=== PATIENT | male | born 1960 | race Caucasian/White ===

== ENCOUNTER 2017-11-25 06:39 | Day surgery (SDC) | payer SELFPAY ==
[2017-11-25] VITALS (7 sets, daily range): BP systolic 74–120; BP diastolic 49–79; PULSE 69–82; RESP 14–16; TEMP 36.5–36.9; O2SAT 96–98; BMI 26.8
--- NOTE | 2017-11-25 | IMM_PTH ---
PATIENT: ABY LESTER LOC: EN U#:[id number] AGE/SX: 57/M ROOM: RE11/25/[address]: Dr. Alexi Park MD : 1960 BED: DIS: 11/25/2017 SPEC #: [id number] RECD: 11/26/17 10:51 STATUS: ADEOLA MILLIE #: [id number] REYMUNDO: 11/25/17 00:[address]: Alexi Park DEPT: IMMUNOHISTOCHEMISTRY RECD BY: Gayle Boyd ENTERED: 11/26/17 10:52 SP TYPE: IMMUNO OTHR DR: Dr. Jhon Park III, MD Tissues: A - Stomach, NOS Procedures: H Pylori (initial) PHYSICIAN & INSTITUTION [place] [id number] SPECIMEN INFORMATION: Tissue Source: A ? Proximal ascending polyp Clinical Info: Reflux, history of polyps Specimen Number: [id number] CPT code: 32975 METHODOLOGY: Deparaffinized sections of prefer/formalin-fixed tissue or PAP/DQ stained slides are incubated with monoclonal/polyclonal antibodies/oligonucleotide probes. Localization is made via biotin free immunoperoxidase method. Appropriate controls are performed and reacted as expected. Results on target cell population are indicated in the following table: RESULTS: ANTIBODY / CLONE RESULT Block A H Pylori (polyclonal) negative These tests were developed and their performance characteristics determined by [facility]. They may not have been cleared or approved by the U.S. Food and Drug Administration. The FDA has determined that such clearance or approval is not necessary. INTERPRETATION: A. Proximal ascending polyp, biopsy: Negative for Helicobacter pylori organisms. SJ:karla 11/27/17
--- NOTE | 2017-11-25 09:05 | EGD_PTH ---
PATIENT: ABY LESTER LOC: EN U#:[id number] AGE/SX: 57/M ROOM: RE11/25/[address]: Dr. Alexi Park MD : 1960 BED: DIS: 11/25/2017 SPEC #: [id number] RECD: 11/25/17 11:14 STATUS: ADEOLA MILLIE #: [id number] REYMUNDO: 11/25/17 09:[address]: Alexi Park DEPT: SURGICAL PATHOLOGY RECD BY: Deon Schroeder ENTERED: 11/25/17 13:23 SP TYPE: EGD BIOPSY OT DR: Dr. Jhon Park III, MD Tissues: A - Gastric mucous membrane B - Gastric mucous membrane C - Esophageal mucous membrane D - Ascending colon E - Ascending colon F - COLON BIOPSY Procedures: Special Stain Group II Surgery Specimen Level IV Alcian Blue/PAS (control) HEADER OPERATION: EGD, colonoscopy PRE-OP DIAGNOSIS: Reflux; history of polyps TISSUE SUBMITTED: A ? Antral biopsy for H. pylori and path, B ? Gastric polyp biopsy, C ? Distal esophageal biopsy, D ? Proximal ascending polyp, E ? Proximal ascending polyp biopsy, F ? Hepatic flexure polyp MICROSCOPIC DIAGNOSIS A. Antral biopsy: Mild gastritis. B. Gastric polyp, biopsy: Fundic gland polyp. C. 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 Focal mild chronic inflammation. Negative for dysplasia. See comment. D. Proximal ascending colon polyp, biopsy: Fragments of tubular adenoma. E. Proximal ascending colon polyp, biopsy: Tubular adenoma. F. Hepatic flexure polyp, biopsy: Fragments of tubular adenoma. Fragments of fecal material. SJ:karla 11/26/17 COMMENT A. The results of immunohistochemistry for Helicobacter pylori will be reported separately ([id number]). B. Alcian blue/PAS stain with matched control is used in the evaluation of the specimen. MICROSCOPIC DESCRIPTION Slides are reviewed. A. The specimen shows fragments of gastric mucosa with chronic inflammatory cell infiltrates in the lamina propria consisting of lymphocytes and plasma cells, consistent with mild chronic gastritis. GROSS DESCRIPTION A - Received in fixative is one container labeled with the patient's name and designated antral biopsy. The specimen consists of one elongated fragment of pink-marcial soft tissue that measures 0.7 x 0.3 x 0.2 cm. The specimen is totally submitted in one cassette. B - Received in fixative is one container labeled with the patient's name and designated gastric polyp biopsy. The specimen consists of one irregular fragment of pink-marcial soft tissue that measures 0.4 x 0.4 x 0.2 cm. The specimen is totally submitted in one cassette. C - Received in fixative is one container labeled with the patient's name and designated distal esophageal biopsy. The specimen consists of multiple irregular fragments of white-pink soft tissue that in aggregate measure 1.5 x 0.5 x 0.1 cm. The specimen is totally submitted in one cassette. D - Received in fixative is one container labeled with the patient's name and designated ascending colon biopsy. The specimen consists of multiple irregular fragments of light marcial soft tissue that in aggregate measure 0.7 x 0.5 x 0.2 cm. The specimen is totally submitted in one cassette. E - Received in fixative is one container labeled with the patient's name and designated proximal ascending colon polyp biopsy. The specimen consists of multiple irregular fragments of pink-marcial soft tissue that in aggregate measure 0.7 x 0.3 x 0.2 cm. The specimen is totally submitted in one cassette. F - Received in fixative is one container labeled with the patient's name and designated hepatic flexure polyp. The specimen consists of multiple irregular fragments of light marcial soft tissue mixed with fecal material that in aggregate measure 1.2 x 0.7 x 0.2 cm. The specimen is totally submitted in one cassette. / RY:rg 11/25/17 TC:1 CPT: 50698 x6, 00067
--- NOTE | 2017-11-25 09:44 | OP.PCM_ITS ---
Problem List (1) Cough Status: Acute (2) Personal history of colonic polyps Status: Acute Report of Operation Date of Procedure: 11/25/17 Pre-Operative Diagnosis: Cough. Personal history of colon polyps Post-Operative Diagnosis: Cough, moderate hiatal hernia, reflux esophagitis and findings suspicious for Peña's esophagus gastric fundic polyps,. Sessile polyps of the proximal ascending colon ?2. Sessile polyp C hepatic flexure ?2 Surgery/Procedure Performed:: Esophagogastroduodenoscopy with antral and distal esophageal fold forcep biopsies and gastric polypectomy cold forcep biopsy. Colonoscopy with cold forcep polypectomy and hot snare polypectomy Description of Surgical Findings:: Amount and informed consent was obtained. 57-year-old gentleman was taken to the endoscopy room. His oropharynx anesthetized with Cetacaine. He was placed in a left lateral decubitus position. Throughout both the upper and lower endoscopy he received a total of 150 mg of Demerol and 5 mg of Versed is intravenous sedation. Videogastroscope was inserted into the esophageal inlet advanced without difficulty. The proximal mid esophagus was not remarkable. The EG junction was approximately 37 cm. Moderate sized hiatal hernia noted. Findings consistent with reflux esophagitis and irritation erosion of the esophagus noted with additional findings suspicious for Peña's esophagus over a length of approximately 1-1/2 cm. Widely patent EG junction. The scope was advanced into the stomach minimal air antral erythema noted. The scope was advanced through the pylorus and the first and second portion of the duodenum were inspected this was not remarkable. The scope was withdrawn back into the stomach antrum was biopsied. Performed with cold forceps. The scope was retroflexed. A hiatal hernia noted. Scattered gastric fundic polyps noted. Cold forceps used to biopsy 1 of those. Excess fluid and air was aspirated free after the greater and lesser curvatures were inspected. The distal esophagus was noted to have findings consistent with esophagitis and possibly Peña's. Cold forceps biopsies were performed. Hemostasis was intact. Excess fluid and air was aspirated free. The scope was withdrawn without additional abnormality. The patient was kept in left loud skin position. Digital rectal exam performed. Grade 2-3 hemorrhoids noted with 3+ enlarged prostate. The scope was advanced through the left colon transverse colon with some transabdominal pressure to the cecum. The cecum ileocecal valve area was nicely achieved. Bowel prep was adequate. 2 sessile polyps of the proximal ascending colon were identified. One was removed with a hot snare. The second was removed with cold forceps. The scope was withdrawn and 2 additional polyps were identified at the hepatic flexure. One was removed with a hot snare. That area was then treated with a hemostatic clip. The other one was more diminutive and treated with a cold biopsy. Hemostasis intact. The scope was withdrawn from the transverse colon descending colon sigmoid colon. Scattered sigmoid diverticulosis identified. No evidence of acute inflammation. Excess fluid nurse aspirated free after the scope was retroflexed within the rectum and the hemorrhoidal changes noted. The procedure was completed he tolerated it well. Impression Moderate sized hiatal hernia with findings consistent with gastroesophageal reflux disease and possibly Peña's. Minimal antral gastritis. Scattered benign-appearing gastric fundic polyps. 2 sessile polyps of the proximal ascending colon into sessile polyps of these hepatic flexure. Pathology pending. This colonoscopy was November 09, 2012. Consideration for follow-up colonoscopy at no greater than 3 years. This will be pending pathology. The patient is scheduled to have a return office visit with me in 1 week's time to discuss his colonic polyps as well as hiatal hernia GERD and possible Peña 's. Possible consideration for surgical reflux procedure. Cc: Dr. Jhon Park, III The upper endoscopy was Meds given were 0900. The scope was inserted 0903. Procedure was completed at 0910. The colonoscopy was started 0913. The cecum was reached at 0915. And the procedure was completed at 0932. Alexi Park M.D., F.A.C.S. Type of Anesthesia:: IV Sedation
--- NOTE | 2017-11-25 10:05 | SUR.PHASEI ---
Per Dr Shultz's orders: Prescription for Omeprazole 40mg daily x30tab phoned to [facility] to [facility] Pharmacist. pt aware.
== END 2017-11-25 10:40 | disposition home or self-care (01) ==
LOC: EN 06:41 → AC 06:42
PROVIDERS: Family Provider Family Medicine; PCP Family Medicine; Visit Provider Surgery
PROC: 0DJD8ZZ Inspection of Lower Intestinal Tract, Via Natural or Artificial Opening Endoscopic (ICD-10-PCS; CPT 45378; principal; 2017-11-25 08:25)
DX: K29.50 Unspecified chronic gastritis without bleeding (principal); K44.9 Diaphragmatic hernia without obstruction or gangrene; K21.0 Gastro-esophageal reflux disease with esophagitis; K22.70 Barrett's esophagus without dysplasia; D12.2 Benign neoplasm of ascending colon; D12.3 Benign neoplasm of transverse colon; K64.1 Second degree hemorrhoids; K64.2 Third degree hemorrhoids; K31.7 Polyp of stomach and duodenum; D12.4 Benign neoplasm of descending colon; Z12.10 Encounter for screening for malignant neoplasm of intestinal tract, unspecified; N40.0 Benign prostatic hyperplasia without lower urinary tract symptoms; R05 Cough; Z87.891 Personal history of nicotine dependence; E78.00 Pure hypercholesterolemia, unspecified; Z80.0 Family history of malignant neoplasm of digestive organs
CPT/HCPCS: 43239; 45380; 45385; 88305; 88313; 88342; 99152; 99153; J7120

== ENCOUNTER 2017-12-11 07:33 | Day surgery (SDC) | payer OTHER, SELFPAY ==
[2017-12-11 07:52] VITALS: BP 134/86; PULSE 69; RESP 18; TEMP 36.2; O2SAT 99; BMI 26.4
== END 2017-12-11 08:52 | disposition home or self-care (01) ==
LOC: EN 07:34 → AC 07:35
PROVIDERS: Family Provider Family Medicine; PCP Family Medicine; Visit Provider Surgery
PROC: F00ZJWZ Instrumental Swallowing and Oral Function Assessment using Swallowing Equipment (ICD-10-PCS; CPT 43235; principal; 2017-12-11 07:55)
DX: Z13.810 Encounter for screening for upper gastrointestinal disorder (principal)
CPT/HCPCS: 91010

== ENCOUNTER 2017-12-29 11:27 | Observation (INO) | payer SELFPAY ==
--- NOTE | 2017-12-17 14:07 | EKG12_ITS ---
Test Reason : PRE OP Blood Pressure : / mmHG Vent. Rate : 072 BPM Atrial Rate : 072 BPM P-R Int : 156 ms QRS Dur : 112 ms QT Int : 368 ms P-R-T Axes : 032 -10 044 degrees QTc Int : 402 ms Sinus rhythm with Premature atrial complexes Otherwise normal ECG Confirmed by SARAHI BAILEY, YURY ([id number]), copy editor SERENA LESTER ([id number]) on 12/19/2017 1:00:34 PM Referred By: Alexi Park Confirmed By:YURY MCCLAIN MD
[2017-12-17 14:10] LABS: Absolute Lymphocyte Count 1.43 X10^3/ul (0.83-4.51); Absolute Neutrophil Count 4.5 X10^3/uL (2.0-7.7); Basophil# 0.07 X10^3/uL; Eosinophil# 0.13 X10^3/uL; Eosinophils% 1.9 % (0-5); Hematocrit 44.5 % (40-54); Hemoglobin 14.3 g/dl (13.0-16.5); Lymphocyte # 1.43 X10^3/ul (4.0); Lymphocyte % 21.1 % (19-41); Mean Corp Hgb Conc 32.1 g/gl (32-36); Mean Corpuscular Hgb 27.3 pg (27.0-32.0); Mean Corpuscular Volume 84.9 fL (80-94); Mean Platelet Vol. 8.8 fl (6.2-12.0); Monocyte# 0.67 X10^3/uL; Monocyte% 9.9 % (0-10); Neutrophil # 4.45 X10^3/uL (2.7-7.7); Neutrophil % 65.8 % (47-70); Platelet Count 223 K/mm3 (150-450); RBC Distribution Width CV 13.4 % (11.6-14.6); RBC Distribution Width SD 41.4 fl (35.1-43.9); Red Blood Count 5.24 M/mm3 (4.6-6.2); White Blood Count 6.8 K/mm3 (4.4-11.0)
[2017-12-17 14:11] LABS: POSITIVE COUNT NO; POSITIVE DIFFERENTIAL NO; POSITIVE MORPHOLOGY NO
--- NOTE | 2017-12-17 14:15 | RAD_ITS ---
STUDY: X-RAY CHEST REASON FOR EXAM: Male, 57 years old. cough x2 months pt scheduled for hiatal hernia surgery December 29 TECHNIQUE: Frontal and lateral view of the chest. COMPARISON: None. FINDINGS: The lungs are clear and expanded. There is no demonstrated pleural abnormality. Normal size heart. Calcified hilar lymph nodes. Normal visualized pulmonary arteries. Normal visualized aortic arch and descending thoracic aorta. There are diffuse degenerative changes of the visualized thoracic spine. Normal visualized ribs, clavicles, and shoulders. There is no demonstrated abnormality of the visualized soft tissue structures of the upper abdomen. RAD/Chest PA and Lateral IMPRESSION: There are no acute findings in the chest. Electronically Signed: Dwight Peace MD at 17:08 EDT , Service support ,
[2017-12-17 14:39] LABS: Anion Gap 4 (5-15); BUN 24 mg/dL (7-18); BUN/Creat Ratio 25.5 RATIO (10-20); Chloride 106 mmol/L (98-107); Creatinine, Serum 0.94 mg/dL (0.70-1.30); EST Glomerular Filtration Rate 88 mL/min (>60); Est Glom Filt Rate - Afr Amer 107 mL/min (>60); Glucose 82 mg/dL (74-106); Potassium 4.1 mmol/L (3.5-5.1); Sodium Level 139 mmol/L (136-145)
[2017-12-29] VITALS (14 sets, daily range): BP systolic 119–141; BP diastolic 52–97; PULSE 65–91; RESP 14–18; TEMP 36.3–37.1; O2SAT 93–99; BMI 27.7
--- NOTE | 2017-12-29 06:14 | DCINST_ITS ---
Discharge Diet: Light diet - advance as tolerated - if you have questions about your diet instructions, please talk to you doctor., - - Dissolvable liquids/ soups for 1-2 days then may advance to pasta and rice and then to flaky fish or well cut up chicken Discharge Activity: May Not Drive - for 1 week or while taking narcotic pain medicine., - - May perform light tasks--pencil pushing No bike riding yet please May shower in (days): 1 Lifting Restrictions: 10 pounds Call your doctor if your incision/area has: Continuous Slow Oozing, Sudden Increased Bleeding, Increased Pain/ Swelling, Increased Redness, Foul Smelling Discharge Call your doctor if you observe: Fever of 101 or Higher Suture Line Care: Avoid Pulling/Pushing, Avoid Pinching/Bending Additional Dressing/Incision Instructions:: Change or remove dressing in 4 days. Leave steri-strips in place for 1 week. Allergies/Adverse Reactions: Allergies No Known Allergies Allergy (Verified 12/11/17 07:57) Medications to take at Discharge simvastatin 20 mg tablet 20 mg PO QAM 11/17/17 [place]-3 Fatty Acids/Fish Oil [Fish Oil 1,000 mg Capsule] 1 ea PO DAILY 11/19/17 Prosta [place] 9 mg PO DAILY 12/23/17 Hydrocodone Bitart/Apap 5-325 [[place] 5MG-325MG] 1 tablet PO Q4H PRN PRN 3 Days # 10 tablet 12/29/17 The following prescriptions were given: Hydrocodone Bitart/Apap 5-325 [[place] 5MG-325MG] 1 tablet PO Q4H PRN PRN 3 Days # 10 tablet PRN Reason: Pain Primary Care Physician: Jhon Park III, MD [Primary Care Provider] - Please Follow Up With: Alexi Park MD - [phone] When: Call to make an appointment to be seen in about 10 days.
[2017-12-29] MEDS: Cefazolin 2 GM in 0.9% Normal Saline 100 ML IV (07:34)
[2017-12-29] MEDS: Bupivacaine Mpf 0.5% 30 ML VIAL (11:02)
--- NOTE | 2017-12-29 11:13 | PCM.OPRPT ---
Problem List (1) Peña esophagus Status: Acute Qualifiers: Peña's esophagus type: without dysplasia Report of Operation Date of Procedure: 12/29/17 Pre-Operative Diagnosis: Gastroesophageal reflux disease with Peña's esophagus and chronic cough. Diminished esophageal motility Post-Operative Diagnosis: Same Surgery/Procedure Performed:: Laparoscopic toupet procedure with repair of hiatal hernia. Confirmatory topical gastroduodenoscopy Description of Surgical Findings:: Timeout and informed consent was obtained. 57-year-old gentleman was taken the operating room. He was placed prone on the table. He underwent general ventricular-based anesthesia. Ancef 2 g given intravenous preoperatively. He was placed in a low lithotomy position. Careful positioning of a footboard with rolled blankets was used to support the buttock area. The abdomen was then sterilely prepped and draped. Drape holding. Using a 500 Visiport technology superior and right upper abdomen [place] was gained. The abdomen was insufflated with CO2 to pressure of tenderness or pressure. The abdomen is inspected. A significant amount of fatty omentum. Then in the left epigastrium I placed a 10 point report. 2 additional 500 ports in the left upper quadrant and a additional family report laterally on the right. Through the lateral right port liver retractor was placed. The patient was placed in reverse Trendelenburg position. There appeared to be a replaced right hepatic artery. I incised the epiphrenic ligament gain access identify the right arya then dissected over the apical surface of the esophagus identified the left arya. Unfortunately the stomach was really densely adherent particularly on the left with a very very short short gastrics. I used harmonic scalpel to incise the greater curvature the stomach dissected up to the hilum of the spleen the short gastrics were extraordinarily tight and very careful and tedious dissection was required to free the short gastrics were needed I did do several Hem-o-stefano clips. Gradually with repositioning the patient was able to gradually gain more complete review on access. Now having completely freed the fundus of the stomach is now better address the left arya and I dissected that free did some blunt retroesophageal dissection and then tediously looking at both sides was able to circumferentially dissect around the esophagus. Having been achieved that I now had still be intact hepatic. I repaired the arya with a pledgeted suture of interrupted 0 Ethibond. 2 separate sutures were placed. I felt that I had good closure. Then I took the fundus of the stomach and wrapped around the back. I secured the posterior aspect of the wrap to the diaphragmatic repair again with serial Ethibond. Now I performed the anterior portion of the wrap the apical sutures I interrupted and performed by addressing the fundus of the stomach epiphrenic ligament in the anterior wall of the esophagus and what ended up being approximately 240? posterior wrap. Apical suture was interrupted then I used a running line of 0 Ethibond to complete that to pay procedure. I performed a similar technique on each side with an interrupted suture apically including the epiphrenic ligament the anterior surface of the vagus and then a running suture to complete that approximation of the fundic wrap to the anterior wall of the esophagus. Vagus nerves appear to be intact. I felt that he had good posterior placement good securement of this wrap. A piece of fibular and been placed in the bed of the spleen to further assist with hemostasis this area was reinspected I felt that it was nicely intact. Now I am introduced a flexible gastroscope after instilling fluid in the upper abdomen there was no evidence of any air leak whatsoever I inspected the esophagus it appeared to be nicely intact appearance again identified the scope was introduced in the stomach retroflexed and I felt that there was a nice posterior graft in place. I then placed at the antegrade viewing aspirated out fluid and air withdrew the scope. The abdomen was closed with a 10 minute trocar site with 0 Vicryl utilizing a grainy needle technique. Wounds were closed with interrupted 4 Monocryl subdermal stitches. Steri-Strips Telfa and OpSite dressings applied. Sponge instrument and needle counts were reported to the surgeon be correct. Blood loss was approximately 20 cc. He tolerated procedure was taken to recovery or insect condition is no apparent complication. Specimens none. Drains none. Blood loss 20 cc. Alexi Park M.D., F.A.C.S. Type of Anesthesia:: General Anesthesiologist: Alli Jose
[2017-12-29] MEDS: Ondansetron 4 MG/2 ML Vial IV (15:22)
--- NOTE | 2017-12-29 18:01 | PCM.PN.BLA ---
Progress Note Pt with some nausea, no vomiting, no flatus Some pain, not severe Difficulties with voiding, may need st. cath Will initiate flomax and hold IVF Good progress
[2017-12-29] MEDS: Tamsulosin HCl 0.4 MG Capsule PO (18:27)
[2017-12-29] MEDS: Acetaminophen 325 MG Tablet 650 MG PO (19:00)
[2017-12-29] MEDS: Atorvastatin Calcium 10 MG Tablet PO (21:55)
[2017-12-30] MEDS: Acetaminophen 325 MG Tablet 650 MG PO ×2 (01:42→07:41)
[2017-12-30 04:26] VITALS: BP 131/77; PULSE 78; RESP 16; TEMP 36.8; O2SAT 94
--- NOTE | 2017-12-30 05:53 | PCM.PN.BLA ---
Progress Note Good progress Advance diet dissolvable liquids and discharge
[2017-12-30 06:11] LABS: Absolute Lymphocyte Count 1.04 X10^3/ul (0.83-4.51); Absolute Neutrophil Count 6.1 X10^3/uL (2.0-7.7); Basophil# 0.02 X10^3/uL; Basophil% 0.2 % (0-1); Eosinophil# 0.03 X10^3/uL; Eosinophils% 0.4 % (0-5); Hematocrit 39.1 % (40-54); Hemoglobin 12.8 g/dl (13.0-16.5); Lymphocyte # 1.04 X10^3/ul (4.0); Mean Corp Hgb Conc 32.7 g/gl (32-36); Mean Corpuscular Hgb 27.6 pg (27.0-32.0); Mean Corpuscular Volume 84.4 fL (80-94); Mean Platelet Vol. 9.4 fl (6.2-12.0); Monocyte# 0.81 X10^3/uL; Monocyte% 10.1 % (0-10); Neutrophil # 6.12 X10^3/uL (2.7-7.7); Neutrophil % 76.2 % (47-70); Platelet Count 206 K/mm3 (150-450); RBC Distribution Width CV 13.5 % (11.6-14.6); RBC Distribution Width SD 40.7 fl (35.1-43.9); Red Blood Count 4.63 M/mm3 (4.6-6.2)
[2017-12-30 06:14] LABS: POSITIVE COUNT NO; POSITIVE DIFFERENTIAL NO; POSITIVE MORPHOLOGY NO
[2017-12-30 07:42] VITALS: BP 126/86; PULSE 73; RESP 18; TEMP 36.7; O2SAT 97
[2017-12-30] MEDS: Omega-3 Acid Ethyl Esters 1 GM Capsule PO (09:47)
[2017-12-30 10:56] VITALS: BP 124/90; PULSE 76; RESP 18; TEMP 36.8; O2SAT 96
[2017-12-30 13:05] VITALS: BP 124/90; PULSE 76; RESP 18; TEMP 36.8; O2SAT 96
== END 2017-12-30 13:05 | disposition home or self-care (01) ==
LOC: SDC 11:35 → MS3 12-30 13:21
PROVIDERS: Admitting Provider Surgery; Family Provider Family Medicine; PCP Family Medicine; Visit Provider Surgery
PROC: (CPT 43325; principal; 2017-12-29 07:25)
DX: K22.70 Barrett's esophagus without dysplasia (principal); K44.9 Diaphragmatic hernia without obstruction or gangrene; K21.9 Gastro-esophageal reflux disease without esophagitis; R05 Cough; E78.00 Pure hypercholesterolemia, unspecified; Z79.899 Other long term (current) drug therapy
CPT/HCPCS: 43280; 36415; 80048; 85025; 96374; 99218; J7120; C1768; G0378; G0379; J2405

== ENCOUNTER → 2018-11-19 16:31 | Outpatient (CLI) | payer OTHER, SELFPAY ==
[2017-12-29 13:51] VITALS: BMI 27.7
--- NOTE | 2018-11-19 16:35 | EKG12_ITS ---
Test Reason : PRE-OP Blood Pressure : / mmHG Vent. Rate : 083 BPM Atrial Rate : 083 BPM P-R Int : 154 ms QRS Dur : 112 ms QT Int : 356 ms P-R-T Axes : 033 002 053 degrees QTc Int : 418 ms Normal sinus rhythm with sinus arrhythmia Inferior infarct , age undetermined Abnormal ECG Confirmed by CARLOTA BAILEY, TERRENCE ([id number]), production editor LAUREN THOMPSON ([id number]) on 11/20/2018 1:46:03 PM Referred By: Eliel Lyles Confirmed By:TERRENCE VAN MD
--- NOTE | 2018-11-19 16:35 | RAD_ITS ---
STUDY: X-RAY CHEST REASON FOR EXAM: Male, 58 years old. Preoperative testing TECHNIQUE: PA and lateral views of the chest. COMPARISON: None. FINDINGS: The lungs are clear and expanded. There is no demonstrated pleural abnormality. Normal size heart. Normal mediastinum and elyse. Normal visualized pulmonary arteries. Normal visualized aortic arch and descending thoracic aorta. There are diffuse degenerative changes of the visualized thoracic spine. Normal visualized ribs, clavicles, and shoulders. There is no demonstrated abnormality of the visualized soft tissue structures of the upper abdomen. RAD/Chest PA and Lateral IMPRESSION: 1. No acute cardiopulmonary process. Electronically Signed: Arturo Triana MD at 12:11 EDT , Service support ,
== END ==
PROVIDERS: Family Provider Family Medicine; PCP Family Medicine; Referring Provider Orthopaedic Surgery; Visit Provider Orthopaedic Surgery
DX: Z01.810 Encounter for preprocedural cardiovascular examination (principal); Z01.811 Encounter for preprocedural respiratory examination
CPT/HCPCS: 71046; 93005

== ENCOUNTER → 2018-12-08 15:27 | Outpatient (CLI) | payer OTHER, SELFPAY ==
[2018-12-08 14:47] VITALS: BMI 28.8
[2018-12-08 18:19] LABS: AST(SGOT) 21 U/L (15-37); Alanine Aminotransfer ALT/SGPT 29 U/L (16-61); Albumin, Serum 3.9 g/dL (3.2-5.0); Alkaline Phosphatase 89 U/L (45-117); Bilirubin, Direct 0.08 mg/dL (0.00-0.30); Globulin 3.6 g/dL (2.2-4.2); Protein, Total 7.5 g/dL (6.4-8.2)
== END ==
PROVIDERS: Family Provider Family Medicine; PCP Family Medicine; Referring Provider Internal Medicine Cardiovascular Disease; Visit Provider Internal Medicine Cardiovascular Disease
DX: E78.00 Pure hypercholesterolemia, unspecified (principal)
CPT/HCPCS: 36415; 80076

== ENCOUNTER → 2018-12-18 13:37 | Outpatient (CLI) | payer SELFPAY ==
[2018-12-08 14:47] VITALS: BMI 28.8
--- NOTE | 2018-12-18 13:39 | ECHOD_ITS ---
Reason For Study: PRE-OPERATIVE Procedure This was a 2D Doppler, Color Flow transthoracic echocardiogram. Exam performed in department. Left Ventricle Normal size and thickness. The estimated ejection fraction is 75 %. Stage 1 diastolic dysfunction. No regional wall motion abnormalities noted. Right Ventricle Normal size and thickness. Normal systolic function. Atria Normal left atrium. Normal right atrium. Normal atrial septum. Mitral Valve The mitral valve is structurally normal. No prolapse or stenosis seen. Tricuspid Valve Normal tricuspid valve. Trivial tricuspid valve insufficiency. Right ventricular systolic pressure estimated to be 30 mmHg. Aortic Valve Normal aortic valve. Trisinus/trileaflet aortic valve. Pulmonic Valve Normal pulmonic valve. Great Vessels Normal aortic root. Normal arch. Normal inferior vena cava. Inferior vena cava collapse with sniff. Pericardium/Pleural No pericardial effusion. MMode/2D Measurements & Calculations LVIDd: 4.8 cm IVSd: 0.96 cm Ao root diam: 3.4 cm LVIDs: 2.7 cm LVPWd: 1.0 cm RVDd: 3.7 cm FS: 43.1 % LAV(MOD-bp): 54.8 ml LVAd ap4: 38.9 cm2 SV(MOD-sp4): 91.6 ml LAV(MOD-bp) Indexed: 26.5 ml/m2 EDV(MOD-sp4): 133.5 ml LAV(MOD-sp2): 61.1 ml EDV(sp4-el): 140.5 ml LAV(MOD-sp4): 45.5 ml LVAs ap4: 18.8 cm2 ESV(MOD-sp4): 41.9 ml ESV(sp4-el): 41.8 ml EF(MOD-sp4): 68.6 % EF(sp4-el): 70.2 % SV(sp4-el): 98.7 ml LA A4 area: 18.0 cm2 LA dimension(2D): 3.6 cm RA A4 area: 14.8 cm2 Time Measurements MV dec time: 0.21 sec Doppler Measurements & Calculations MV E max levar: 106.6 cm/sec Lat Peak E' Levar: 11.3 cm/sec Med Peak E' Levar: 8.5 cm/sec MV A max levar: 117.9 cm/sec E/E' lat: 9.4 E/E' med: 12.5 MV E/A: 0.90 Ao V2 max: 195.7 cm/sec LV V1 max: 148.3 cm/sec PA V2 max: 169.9 cm/sec Ao max P.3 mmHg LV V1 max P.8 mmHg TR max levar: 249.6 cm/sec TR max P.9 mmHg Interpretation Summary Stage 1 diastolic dysfunction. The estimated ejection fraction is 75 %. Trivial tricuspid valve insufficiency. Right ventricular systolic pressure estimated to be 30 mmHg. There is no comparison study available. Ordering Physician: Ancelmo Dyson Referring Physician: BEATRIS WAGNER Performed By: Marisol Bowman RDCS
== END ==
PROVIDERS: Family Provider Family Medicine; PCP Family Medicine; Referring Provider Internal Medicine Cardiovascular Disease; Visit Provider Internal Medicine Cardiovascular Disease
DX: Z01.810 Encounter for preprocedural cardiovascular examination (principal); E78.00 Pure hypercholesterolemia, unspecified; R94.31 Abnormal electrocardiogram [ECG] [EKG]
CPT/HCPCS: 93306

== ENCOUNTER → 2018-12-22 09:54 | Outpatient (CLI) | payer OTHER, SELFPAY ==
[2018-12-08 14:47] VITALS: BMI 28.8
--- NOTE | 2018-12-22 09:56 | STEWCON_ITS ---
Reason For Study: PRE-OP Stress Results Protocol: Michael Protocol WITH DEFINITY Maximum Predicted HR: 164 bpm Target HR: 139 bpm % Maximum Predicted HR: 93 % DurationHeart Rate Stage (mm:ss) (bpm) BP Comment BASELINE 68 132/801CC DEFINITY STAGE 1 3:00 110 152/72 STAGE 2 3:00 122 140/76 STAGE 3 3:00 153 164/601CC DEFINITY RECOVERY 90 130/70 Stress Duration: 9:00 mm:ss Maximum Stress HR: 153 bpm Baseline Echocardiogram Findings The estimated ejection fraction is 60 %. Stress Echo Wall motion Data Resting WM Intermediate WM Stress WM Resting Wall Motion Wall Motion Stress No regional wall motion No regional wall motion abnormalities noted. abnormalities noted. EKG Data The baseline ECG displays normal sinus rhythm. The patient exercised according to the regular Michael protocol for a total duration of 9:00. The maximum heart rate attained was 155 beats per minute. This was 94% of maximum predicted heart rate. The patient exercised into stage 4 of the Michael protocol. During stress, there were no ST or T wave changes noted to suggest ischemia. No clinical angina was noted. Interpretation Summary The estimated ejection fraction is 60 %. Normal, adequate, treadmill echocardiogram. Negative for ischemia by EKG and echocardiographic criteria. No anginal symptoms noted. Rare PVC noted. Appropriate blood pressure response to exercise. Average exercise capacity for age. Rare PVCs noted. Test terminated due to target heart rate achieved. Decreased sensitivity due to poor echo windows requiring Definity agent. No complication. The study was technically difficult. Contrast injection was performed. Ordering Physician: Ancelmo Dyson MD Referring Physician: Ancelmo Dyson Performed By: Odalys Guerra, FAYE, RVT
[2018-12-22 11:49] LABS: Cholesterol 189 mg/dL (200); High Density Lipoprotein 61 mg/dL; Triglycerides 108 mg/dL; Very Low Density Lipoprotein 22 mg/dL (5-40)
== END ==
PROVIDERS: Family Provider Family Medicine; PCP Family Medicine; Referring Provider Internal Medicine Cardiovascular Disease; Visit Provider Internal Medicine Cardiovascular Disease
DX: Z01.810 Encounter for preprocedural cardiovascular examination (principal); E78.00 Pure hypercholesterolemia, unspecified; R94.31 Abnormal electrocardiogram [ECG] [EKG]
CPT/HCPCS: 36415; 80061; 93017; 93350; Q9957; A4216; C8928

== ENCOUNTER → 2020-01-27 13:58 | Outpatient (CLI) | payer OTHER, SELFPAY ==
[2019-11-16 14:28] VITALS: BMI 29.2
[2020-01-27 15:04] LABS: AST(SGOT) 18 U/L (15-37); Alanine Aminotransfer ALT/SGPT 25 U/L (16-61); Albumin, Serum 3.6 g/dL (3.2-5.0); Alkaline Phosphatase 79 U/L (45-117); Bilirubin, Direct 0.22 mg/dL (0.00-0.30); Cholesterol 172 mg/dL (200); Globulin 3.6 g/dL (2.2-4.2); High Density Lipoprotein 54 mg/dL; Protein, Total 7.2 g/dL (6.4-8.2); Triglycerides 92 mg/dL; Very Low Density Lipoprotein 18 mg/dL (5-40)
== END ==
PROVIDERS: PCP Family Medicine; Visit Provider Internal Medicine Cardiovascular Disease
DX: E78.00 Pure hypercholesterolemia, unspecified (principal)
CPT/HCPCS: 36415; 80061; 80076

== ENCOUNTER 2020-04-07 05:12 | Day surgery (SDC) | payer SELFPAY ==
[2019-11-16 14:28] VITALS: BMI 29.2
[2020-04-07] VITALS (8 sets, daily range): BP systolic 108–129; BP diastolic 67–94; PULSE 56–69; RESP 16; TEMP 36–36.6; O2SAT 94–100; BMI 26.3
--- NOTE | 2020-04-07 05:50 | PCM.HP.BLA ---
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 Head Required: No Is patient in pain?: No Allergies No Known Allergies Allergy (Verified 10/11/19 13:04) Medications simvastatin 20 mg tablet 20 mg PO QAM 11/17/17 [History Confirmed 10/11/19] [place]-3 Fatty Acids/Fish Oil [Fish Oil 1,000 mg Capsule] 1 ea PO DAILY 11/19/17 [History Confirmed 10/11/19] Pro[place] 9 mg PO DAILY 12/23/17 [History Confirmed 10/11/19] aspirin 81 mg tablet,delayed release 81 mg PO DAILY 12/08/18 [History Confirmed 10/11/19] FOR[facility]LY [facility] Medical History Pre-operative cardiovascular exam, new EKG abnormalities c/w ischemia (Acute) Abnormal EKG (Acute) Peña esophagus (Acute) Heartburn (Acute) Hypercholesteremia (Acute) Surgical History History of esophagogastroduodenoscopy (EGD) (Acute) H/O colonoscopy (Acute) H/O umbilical hernia repair (Acute) S/P right rotator cuff repair (Acute) S/P right knee arthroscopy (Acute) History of repair of hiatal hernia (Acute) Family History Father Colon cancer Mother CAD (coronary artery disease) Social History (Updated 10/11/19 @ 13:18 by Alexi Park MD) Smoking Status: Never smoker alcohol intake: never HPI HPI HPI: ABY LESTER, is a 59 M who presents to the office today for surgical follow-up regarding 2 separate issues. 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 His most recent upper and lower endoscopy was December 2017. Subsequent to that he had a laparoscopic toupet procedure.. At that time of his lower scope he had tubular adenoma removed from the proximal ascending colon x2 and from the hepatic flexure x1. His preoperative study showed some esophageal motility issues which was the reason for the partial wrap. He states that ever since the procedure occasionally he will have food that does not quite 1 to go down and all he has to do is take a sip of water to move it along. He has not had a distinguished esophageal obstruction. It does not bother him. He does not correlate it with any particular type of foods. He does not think it is an issue but his asked him to look into it. He otherwise states that the procedure is successful regarding reflux symptoms. He has not noticed any bright red blood per rectum or melena. HPI HPI HPI: ABY LESTER, is a 59 M who presents to the office today for ROS General General: No weight change, appetite, fatigue, colon cancer, breast cancer or weakness HEENT HEENT: No difficulty swallowing, eye injury, eye surgery, swollen glands or hoarseness Endo Endocrine: No thyroid disease, diabetes mellitus, thyroid cancer, Hair loss, heat intolerance or cold intolerance Musc Musculoskeletal: No back problems, arthritis, rheumatoid arthritis, gout or joint pain Cardio Cardiovascular: No murmur, pacemaker, heart disease, atrial fibrillation, high blood pressure, heart attack, heart stent, palpitations, shortness of breat with exertion or chest pain Psych Psychiatric: No depression, anxiety or hearing voices Resp Respiratory: Yes shortness of breath, No sleep apnea, No cough, No COPD, No asthma, No emphysema, No wheezing Gastro Gastrointestinal: No abdominal pain, No nausea or vomiting, No diarrhea, No constipation, No blood in stool, No acid reflux, No hemorrhoids, No ulcers, No gallbladder problem, No black,tarry stools Donaldo Hematologic: Yes blood thinners, No blood disorders, No bleeding, No anemia, No blood clots Neuro Neurologic: No weakness Exam Cardio Heart Sounds: no murmurs Assessment & Plan Problems 1. 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 Multiple polyps of sigmoid colon K63.5 Plan After discussion with the patient it appears that his symptoms have been ongoing since his surgery. They do not cause him any type of ill effect. I suspected secondary to his diminished esophageal motility since he is able to clear it so easily with water. With all of that in mind he and I agreed that we would to do a repeat upper endoscopy looking at his Peña's and repeat colonoscopy because of his history of multiple colon polyps. In the meantime he is also scheduled to see cardiology regarding potential issue that came up during an orthopedic procedure. Again the patient is not stating that he is symptomatic currently. He will be seeing Dr. Ancelmo Dyson. Barring any problems he can present open access for a combined upper endoscopy for Peña's with the successful posterior wrap and colonoscopy because of history of colon polyps. Alexi Park M.D., F.A.C.S. Coding Level of Care Code Off vis,est,level 2 Diagnoses Peña's esophagus without dysplasia K22.70 ??Peña's esophagus type: without dysplasia Multiple polyps of sigmoid colon K63.5 The patient has been seen by Dr. Ancelmo Dyson in cardiac work-up 1. Abnormal EKG: Patient had an abnormal EKG which triggered a cardiac work-up less than 1 year ago, the results of which were essentially negative. He is asymptomatic from a cardiac standpoint. He does have some mild dyspnea on exertion walking up stairs, but this appears to be well tolerated and is not accelerating. No additional treatment was felt to be indicated. The patient was maintained on low-dose aspirin therapy. I have re-examined the patient. There are no clinical changes since date of exam. Procedure Criteria Procedure Type: Elective COVID Risk Discussion: The surgeon/proceduralist and patient have discussed in detail the risk of exposure to and/or potential harm posed by the COVID-19 virus with having a surgery/procedure at this time versus the risk of delaying the surgery/procedure. It is not possible to know either the risk of delaying the surgery or procedure or chance of getting an infection with perfect accuracy, but a joint decision was made between the patient and the surgeon/proceduralist to proceed at this time with the scheduled surgery/procedure as indicated on the consent form.
[2020-04-07] MEDS: Lactated Ringers 1,000 ML 100 ML IV (06:06)
--- NOTE | 2020-04-07 06:30 | IMM_PTH ---
PATIENT: ABY LESTER LOC: EN U#:[id number] AGE/SX: 60/M ROOM: RE04/07/[address]: Dr. Alexi Park MD : 1960 BED: DIS: 04/07/2020 SPEC #: [id number] RECD: 04/07/20 11:58 STATUS: ADEOLA REPhyllis #: [id number] REYMUNDO: 04/07/20 06:[address]: Alexi Park DEPT: IMMUNOHISTOCHEMISTRY RECD BY: Gayle Boyd ENTERED: 04/07/20 11:59 SP TYPE: IMMUNO OTHR DR: Dr. Jhon Park III, MD Tissues: B - Stomach, NOS Procedures: H Pylori (initial) PHYSICIAN & INSTITUTION [place] [address] SPECIMEN INFORMATION: Tissue Source: B - Antrum biopsy Clinical Info: Peña's esophagus, history polyps Specimen Number: [id number] CPT code: 68618 METHODOLOGY: Deparaffinized sections of prefer/formalin-fixed tissue or PAP/DQ stained slides are incubated with monoclonal/polyclonal antibodies/oligonucleotide probes. Localization is made via biotin free immunoperoxidase method. Appropriate controls are performed and reacted as expected. Results on target cell population are indicated in the following table: RESULTS: ANTIBODY / CLONE RESULT Block B H Pylori (polyclonal) negative These tests were developed and their performance characteristics determined by [facility]. They may not have been cleared or approved by the U.S. Food and Drug Administration. The FDA has determined that such clearance or approval is not necessary. INTERPRETATION: B. Antrum biopsy: Negative for Helicobacter pylori organisms. SJ:karla 04/10/20
--- NOTE | 2020-04-07 06:30 | EGD_PTH ---
PATIENT: ABY LESTER LOC: EN U#:[id number] AGE/SX: 60/M ROOM: RE04/07/[address]: Dr. Alexi Park MD : 1960 BED: DIS: 04/07/2020 SPEC #: [id number] RECD: 04/07/20 09:36 STATUS: ADEOLA MILLIE #: [id number] REYMUNDO: 04/07/20 06:[address]: Alexi Park DEPT: SURGICAL PATHOLOGY RECD BY: Deon Schroeder ENTERED: 04/07/20 10:10 SP TYPE: EGD BIOPSY OT DR: Dr. Jhon Park III, MD Tissues: A - Duodenum, NOS B - Gastric mucous membrane C - Esophageal mucous membrane Procedures: Special Stain Group II Surgery Specimen Level IV Alcian Blue/PAS (control) HEADER OPERATION: Colonoscopy, EGD - open access (MOD) PRE-OP DIAGNOSIS: Peña's esophagus, history polyps TISSUE SUBMITTED: A - Duodenal biopsy, B - Antrum biopsy for histo and H. pylori, C - Distal esophagus biopsy MICROSCOPIC DIAGNOSIS A. Duodenal biopsy: A fragment of duodenal mucosa with Denny gland hyperplasia. B. Antrum biopsy: Mild gastritis. See microscopic description and comment. C. Distal esophagus, biopsy: Fragments of gastroesophageal mucosa with focal minimal intestinal metaplasia (goblet cell metaplasia), consistent with Peña's esophagus. Chronic inflammation. Negative for dysplasia. See comment. SJ:karla 04/10/20 COMMENT B. The results of immunohistochemistry for Helicobacter pylori will be reported separately ([id number]). C. Alcian blue/PAS stain with matched control is used in the evaluation of the specimen. MICROSCOPIC DESCRIPTION Slides are reviewed. B. The specimen shows fragments of gastric mucosa with chronic inflammatory cell infiltrates in the lamina propria consisting of lymphocytes and plasma cells, consistent with mild chronic gastritis. GROSS DESCRIPTION A - Received in fixative is one container labeled with the patient's name and designated duodenum biopsy. The specimen consists of one irregular fragment of light marcial soft tissue that measures 0.3 x 0.3 x 0.1 cm. The specimen is totally submitted in one cassette. B - Received in fixative is one container labeled with the patient's name and designated antrum biopsy. The specimen consists of one irregular fragment of light marcial soft tissue that measures 0.3 x 0.2 x 0.1 cm. The specimen is totally submitted in one cassette. C - Received in fixative is one container labeled with the patient's name and designated distal esophagus biopsy. The specimen consists of multiple irregular fragments of light marcial soft tissue that in aggregate measure 1.5 x 0.6 x 0.1 cm. The specimen is totally submitted in one cassette. / SJ:rg 04/07/20 TC:3 CPT: 05070 x3, 50693
--- NOTE | 2020-04-07 07:00 | OP.EGD_ITS ---
Patient Name: Hood Lyles Procedure Date: 04/07/2020 6:14 AM Date of : 1960 Age: 60 Procedure: Upper GI endoscopy Indications: Follow-up of Peña's esophagus Providers: Alexi Park MD Referring MD: Jhon Park Iii Medicines: Midazolam 3 mg IV, Meperidine 75 mg IV Complications: No immediate complications. Procedure: Pre-Anesthesia Assessment: - Prior to the procedure, a History and Physical was performed, and patient medications and allergies were reviewed. The patient's tolerance of previous anesthesia was also reviewed. The risks and benefits of the procedure and the sedation options and risks were discussed with the patient. All questions were answered, and informed consent was obtained. Prior Anticoagulants: The patient has taken no previous anticoagulant or antiplatelet agents. ASA Grade Assessment: II - A patient with mild systemic disease. After reviewing the risks and benefits, the patient was deemed in satisfactory condition to undergo the procedure. After obtaining informed consent, the endoscope was passed under direct vision. Throughout the procedure, the patient's blood pressure, pulse, and oxygen saturations were monitored continuously. The gastroscope was introduced through the mouth, and advanced to the second part of duodenum. The upper GI endoscopy was accomplished without difficulty. The patient tolerated the procedure well. Moderate Sedation: Moderate (conscious) sedation was personally administered by the endoscopist. The following parameters were monitored: oxygen saturation, heart rate, blood pressure, and response to care. Total physician intraservice time was 15 minutes. Scope In: 6:30:02 AM Scope Out: 6:37:34 AM Total Procedure Duration Time 0 hours 7 minutes 32 seconds Findings: There were esophageal mucosal changes consistent with Peña's esophagus present at the gastroesophageal junction. The maximum longitudinal extent of these mucosal changes was 1 cm in length. Mucosa was biopsied with a cold forceps for histology in a targeted manner at the gastroesophageal junction. The entire examined stomach was normal. Biopsies were taken with a cold forceps for histology. Evidence of a Toupet fundoplication was found in the cardia. The wrap appeared intact. Localized mildly erythematous mucosa without active bleeding and with no stigmata of bleeding was found in the duodenal bulb. Biopsies were taken with a cold forceps for histology. Impression: - Esophageal mucosal changes consistent with Peña's esophagus. Biopsied. - Normal stomach. Biopsied. - A Toupet fundoplication was found. The wrap appears intact. - Erythematous duodenopathy. Biopsied. Recommendation: - Await pathology results. - Discharge patient to home. - Resume previous diet. - Continue present medications. - Telephone my office for pathology results in 1 week. - Repeat upper endoscopy in 5 years for surveillance based on pathology results. Procedure Code(s): --- Professional --- 48321, Esophagogastroduodenoscopy, flexible, transoral; with biopsy, single or multiple 89546, 59, Moderate sedation services provided by the same physician or other qualified health care team assistant performing the diagnostic or therapeutic service that the sedation supports, requiring the presence of an independent trained observer to assist in the monitoring of the patient's level of consciousness and physiological status; initial 15 minutes of intraservice time, patient age 5 years or older Diagnosis Code(s): --- Professional --- K22.70, Peña's esophagus without dysplasia Z98.890, Other specified postprocedural states K31.89, Other diseases of stomach and duodenum CPT copyright 2017 [employer]. All rights reserved. The codes documented in this report are preliminary and upon mathematics instructor review may be revised to meet current compliance requirements. Alexi Park MD 04/07/2020 6:59:37 AM This report has been signed electronically. Number of Addenda: 0 Note Initiated On: 04/07/2020 6:14 AM
--- NOTE | 2020-04-07 07:00 | OP.CCLET_ITS ---
04/07/2020 Jhon Park I[address] [place] [address] Re : Upper GI endoscopy procedure for Hood Lyles Dear Dr. Park This procedure was performed on Tuesday, April 07, 2020. My impressions and recommendations are as follows: Impressions : - Esophageal mucosal changes consistent with Peña's esophagus. Biopsied. - Normal stomach. Biopsied. - A Toupet fundoplication was found. The wrap appears intact. - Erythematous duodenopathy. Biopsied. Recommendations : - Await pathology results. - Discharge patient to home. - Resume previous diet. - Continue present medications. - Telephone my office for pathology results in 1 week. - Repeat upper endoscopy in 5 years for surveillance based on pathology results. My findings are described in the full procedure note, which is enclosed. If I can be of further assistance, please feel free to contact me at Doctor phone number(s): Work: . Sincerely, Alexi Park MD 04/07/2020 6:59:37 AM This report has been signed electronically.
--- NOTE | 2020-04-07 07:02 | OP.COLON_ITS ---
Patient Name: Hood Lyles Procedure Date: 04/07/2020 6:38 AM Date of : 1960 Age: 60 Procedure: Colonoscopy Indications: High risk colon cancer surveillance: Personal history of colonic polyps Providers: Alexi Park MD Referring MD: Jhon Park Iii Medicines: Midazolam 1 mg IV, Meperidine 25 mg IV Patient Profile: Last Colonoscopy: 2017. Complications: No immediate complications. Procedure: Pre-Anesthesia Assessment: - Prior to the procedure, a History and Physical was performed, and patient medications and allergies were reviewed. The patient's tolerance of previous anesthesia was also reviewed. The risks and benefits of the procedure and the sedation options and risks were discussed with the patient. All questions were answered, and informed consent was obtained. Prior Anticoagulants: The patient has taken no previous anticoagulant or antiplatelet agents. ASA Grade Assessment: II - A patient with mild systemic disease. After reviewing the risks and benefits, the patient was deemed in satisfactory condition to undergo the procedure. After I obtained informed consent, the scope was passed under direct vision. Throughout the procedure, the patient's blood pressure, pulse, and oxygen saturations were monitored continuously. The colonoscope was introduced through the anus and advanced to the cecum, identified by appendiceal orifice and ileocecal valve. The colonoscopy was performed without difficulty. The patient tolerated the procedure well. The quality of the bowel preparation was good. The ileocecal valve and the appendiceal orifice were photographed. Moderate Sedation: Moderate (conscious) sedation was administered by the endoscopy nurse and supervised by the endoscopist. The following parameters were monitored: oxygen saturation, heart rate, blood pressure, and response to care. Total physician intraservice time was 15 minutes. Scope In: 6:40:35 AM Scope Withdrawal Time 0 hours 6 minutes 51 seconds Scope Out: 6:50:39 AM Total Procedure Duration Time 0 hours 10 minutes 4 seconds Findings: The digital rectal exam findings include anal stricture and enlarged prostate. Multiple diverticula were found in the sigmoid colon and descending colon. The exam was otherwise without abnormality. Impression: - Anal stricture and enlarged prostate found on digital rectal exam. - Diverticulosis in the sigmoid colon and in the descending colon. - The examination was otherwise normal. - No specimens collected. Recommendation: - Discharge patient to home. - Resume previous diet. - Continue present medications. - Repeat colonoscopy in 5 years for surveillance. Procedure Code(s): --- Professional --- 35035, Colonoscopy, flexible; diagnostic, including collection of specimen(s) by brushing or washing, when performed (separate procedure) 83577, 59, Moderate sedation services provided by the same physician or other qualified health child care coordinator performing the diagnostic or therapeutic service that the sedation supports, requiring the presence of an independent trained observer to assist in the monitoring of the patient's level of consciousness and physiological status; initial 15 minutes of intraservice time, patient age 5 years or older Diagnosis Code(s): --- Professional --- Z86.010, Personal history of colonic polyps K62.4, Stenosis of anus and rectum N40.0, Benign prostatic hyperplasia without lower urinary tract symptoms K57.30, Diverticulosis of large intestine without perforation or abscess without bleeding CPT copyright 2017 [employer]. All rights reserved. The codes documented in this report are preliminary and upon traveling clerk review may be revised to meet current compliance requirements. Alexi Park MD 04/07/2020 7:02:05 AM This report has been signed electronically. Number of Addenda: 0 Note Initiated On: 04/07/2020 6:38 AM
--- NOTE | 2020-04-07 07:02 | OP.CCLET_ITS ---
04/07/2020 Jhon Park [address] [place] [address] Re : Colonoscopy procedure for Morataya Lyles Dear Dr. Park This procedure was performed on Tuesday, April 07, 2020. My impressions and recommendations are as follows: Impressions : - Anal stricture and enlarged prostate found on digital rectal exam. - Diverticulosis in the sigmoid colon and in the descending colon. - The examination was otherwise normal. - No specimens collected. Recommendations : - Discharge patient to home. - Resume previous diet. - Continue present medications. - Repeat colonoscopy in 5 years for surveillance. My findings are described in the full procedure note, which is enclosed. If I can be of further assistance, please feel free to contact me at Doctor phone number(s): Work: . Sincerely, Alexi Park MD 04/07/2020 7:02:05 AM This report has been signed electronically.
== END 2020-04-07 07:47 | disposition home or self-care (01) ==
LOC: EN 05:13 → AC 05:13
PROVIDERS: Anesthesiology; PCP Family Medicine; Referring Provider Family Medicine; Visit Provider Surgery
PROC: 0DJD8ZZ Inspection of Lower Intestinal Tract, Via Natural or Artificial Opening Endoscopic (ICD-10-PCS; CPT 45378; principal; 2020-04-07 06:25)
DX: K22.70 Barrett's esophagus without dysplasia (principal); K29.70 Gastritis, unspecified, without bleeding; K20.9 Esophagitis, unspecified; K57.30 Diverticulosis of large intestine without perforation or abscess without bleeding; K62.4 Stenosis of anus and rectum; N40.0 Benign prostatic hyperplasia without lower urinary tract symptoms; E78.00 Pure hypercholesterolemia, unspecified; Z86.010 Personal history of colon polyps; Z11.59 Encounter for screening for other viral diseases; Z79.899 Other long term (current) drug therapy
CPT/HCPCS: 43239; 45378; 87635; 88305; 88313; 88342; 94799; 99152; 99153; J7120; U0003

== ENCOUNTER 2024-07-08 08:04 | Day surgery (SDC) | payer SELFPAY, OTHER ==
[2024-07-08] VITALS (7 sets, daily range): BP systolic 93–156; BP diastolic 66–122; PULSE 63–77; RESP 16–18; TEMP 36–36.8; O2SAT 95–99; BMI 28.3
--- NOTE | 2024-07-08 | IMM_PTH ---
PATIENT: ABY LESTER LOC: EN U#:[id number] AGE/SX: 64/M ROOM: RE07/08/[address]: Dr. Jef Cassidy MD : 1960 BED: DIS: 07/08/2024 SPEC #: [id number] RECD: 07/09/24 11:24 STATUS: ADEOLA REPhyllis #: [id number] REYMUNDO: 07/08/24 00:[address]: Jef Cassidy DEPT: IMMUNOHISTOCHEMISTRY RECD BY: Sean Chavarria ENTERED: 07/09/24 11:24 SP TYPE: IMMUNO OTHR DR: Dr. Basilia Padilla MD Tissues: Gastric mucous membrane Procedures: P53 (initial) KI-67 (add) PHYSICIAN & [place] [address] SPECIMEN INFORMATION: Tissue Source: Gastroesophageal junction biopsy Clinical Info: Multiple polyps of sigmoid colon, Peña's esophagus Specimen Number: [id number] CPT code: 46955,76797 METHODOLOGY: Deparaffinized sections of prefer/formalin-fixed tissue or PAP/DQ stained slides are incubated with monoclonal/polyclonal antibodies/oligonucleotide probes. Localization is made via biotin free immunoperoxidase method. Appropriate controls are performed and reacted as expected. Results on target cell population are indicated in the following table: RESULTS: ANTIBODY / CLONE RESULT P53 (DO-7) negative (null pattern) Ki-67 (30-9) positive, low These tests were developed and their performance characteristics determined by [facility]. They may not have been cleared or approved by the U.S. Food and Drug Administration. The FDA has determined that such clearance or approval is not necessary. The above immunohistochemical/dualISH markers are ordered and reviewed by the Pathologist. INTERPRETATION: Gastroesophageal junction, biopsy: Negative for dysplasia. 07/12/2024
--- NOTE | 2024-07-08 08:58 | PRE.ANES_ITS ---
ASA Classification* ASA Classification ASA Classification: 2 Assessment & Plan Anesthesia* Anesthesia Assessment Anesthesia Assessment: Discussed sedation and/or anesthesia options, risks, benefits, and alternatives with patient/parents/legal guardian/POA. Questions invited. The patient/parents/legal guardian/POA seems to understand and agrees to proceed with anesthesia plan. Reviewed the physical assessment, medical history, allergy history and patient home medications list prior to surgery/procedure/anesthetic and documented any changes. Performed airway and anesthesia risk assessments. Anesthesia Type Anesthesia Type: MAC Anesthesia Focused Assessment* Airway Assessment Mouth opens: >3 cm Mallampati Score: II Focused Labs Anesthesia Preop lab: CBC WBC 8.0 K/mm3 (4.4-11.0) 12/30/17 05:14 RBC 4.63 M/mm3 (4.6-6.2) 12/30/17 05:14 Hgb 12.8 g/dl (13.0-16.5) L 12/30/17 05:14 Hct 39.1 % (40-54) L 12/30/17 05:14 Plt Count 206 K/mm3 (150-450) 12/30/17 05:14 CHEMISTRY Potassium 4.1 mmol/L (3.5-5.1) 12/17/17 13:57 Sodium 139 mmol/L (136-145) 12/17/17 13:57 BUN 24 mg/dL (7-18) H 12/17/17 13:57 Creatinine 0.94 mg/dL (0.70-1.30) 12/17/17 13:57 Glucose 82 mg/dL (74-106) 12/17/17 13:57 COAG Pre-Assessment Diagnosis/Proposed Procedure Planned Operative Procedure(s): EGD/CSCOPE Anesthesia History Anesthesia History - universal branch consultant: Anesthesia History - universal branch consultant Hx Hospitalization No 07/07/24 12:09 Any Problems With Anesthesia Yes: TROUBLE BREATHING IN 07/07/24 12:09 RECOVERY Cholinesterase deficiency No 07/07/24 12:09 You/Your Family Experience No 07/07/24 12:09 fever (hyperthermia) with Relationship Recent Exposure to Contagious No 04/07/20 05:52 Disease Does patient have nerve No 07/07/24 12:09 stimulator Patient instructed to have device shut off --Does patient have Pacemaker or ICD? When Was Last Pacemaker Check QUESTION #4 FULL TEXT: You/Your Family Experience fever (hyperthermia) with Anesthesia Last Oral Intake Last Oral intake: Last Oral Intake NPO since Meds taken in AM with sips of water? Meds patient instructed to take am of surgery PONV PONV - universal branch consultant: PONV - universal branch consultant Female No 07/07/24 12:09 HX of Motion Sickness No 07/07/24 12:09 HX of N/V After Surgery No 07/07/24 12:09 Non-Smoker Yes 07/07/24 12:09 Duration of Surgery greater No 07/07/24 12:09 than 60 minutes Number of Risk Factors 1 07/07/24 12:09 PONV Score Low Risk 07/07/24 12:09 Height & Weight Height & Weight: Anesthesia: Height & Weight Height 5 ft 10.5 in 05/28/24 14:02 Respiratory Assessment Respiratory Assessment - universal branch consultant: Respiratory Tract Infection Hx - universal branch consultant Hx Respiratory Tract Infection No: HEAD COLD/NO FEVER 07/07/24 12:09 STOP Sleep Apnea STOP Sleep Apnea - universal branch consultant: STOP Sleep Apnea - universal branch consultant Hx Hypertension No 07/07/24 12:09 Hx Sleep Apnea No 07/07/24 12:09 CPAP BIPAP Do you snore loudly (louder Yes 07/07/24 12:09 than talking or can be heard Do you often feel tired/ No 07/07/24 12:09 fatigued/ sleepy during daytime? Has anyone observed you stop No 07/07/24 12:09 breathing during sleep? STOP Results Negative 07/07/24 12:09 QUESTION #5 FULL TEXT : Do you snore loudly (louder than talking or can be heard through closed doors)? Tobacco Use History Tobacco Use History - universal branch consultant: Tobacco Use History - universal branch consultant Tobacco Use Smoking Status Former smoker 07/07/24 12:09 Hx Tobacco Use No 07/07/24 12:09 Years Smoking Packs Smoked per Day Smoking Cessation Date was Yes - quit smoking within 15 07/07/24 12:09 within the last 15 years years Hx Smoking Cessation Date 08/25/18 07/07/24 12:09 Hx Smoking Cessation Counseling Hematologic Medial History Hematologic Hx - universal branch consultant: Hematologic Medical Hx - fur tanner Hx of Blood Transfusion No 07/07/24 12:09 Hx of Transfusion in last 3 No 07/07/24 12:09 Months Date of Last Transfusion (if within last 3 months) Ever experience any problems No 07/07/24 12:09 with transfusion(s)? Specify any problems Hx of Preganancy in last 3 N/A 07/07/24 12:09 Months Nurse Filling Out Transfusion DSCHRIBER 07/07/24 12:09 & Questions: Date: 07/07/24 07/07/24 12:09 Time: 12:11 07/07/24 12:09 Patient unable to answer at this time (ie. confused, unrespo /Reproduction History /Reproductive History - universal branch consultant: /Reproductive Hx- universal branch consultant Hx Now No 07/07/24 12:09 Gestational Age (in weeks): EDC: Hx Hx Para Hx Section SAB No 07/07/24 12:09 [facility] Medical History Wears glasses Prostate disease Arthritis DVT (deep venous thrombosis) High cholesterol Former smoker History of edema Cardiology follow-up encounter History of echocardiogram History of stress test Multiple polyps of sigmoid colon Pre-operative cardiovascular exam, new EKG abnormalities c/w ischemia Abnormal EKG Peña esophagus Heartburn Hypercholesteremia Home Medications ?Medication ?Instructions ?Recorded ?Last Taken ?Type simvastatin 20 mg tablet 20 mg PO QAM 11/17/17 Unknown History aspirin 81 mg tablet,delayed 81 mg PO DAILY 12/08/18 07/02/24 History release (Adult Aspirin Regimen) Allergy/AdvReac Type Severity Reaction Status Date / Time No Known Allergies Allergy Verified 07/07/24 12:06 Family History Father Colon cancer Mother CAD (coronary artery disease) Surgical History Hx of total knee arthroplasty Hx of left knee surgery History of repair of hiatal hernia History of esophagogastroduodenoscopy (EGD) H/O colonoscopy H/O umbilical hernia repair S/P right rotator cuff repair Social History Smoking Status: Former smoker alcohol intake: never Review of Systems (Anesthesia) ROS Narrative System reviewed and no additional complaints, except as documented.
--- NOTE | 2024-07-08 09:38 | PCM.HP.BLA ---
History and Physical Date of Admission: 07/08/24 Intake Vital Signs 05/28/2414:02 Height 5 ft 10.5 in Weight: 206 lb BMI 29.1 BP 121/69 H Blood Pressure Location Rt brachial Position Sitting Respiration 18 Intake Visit Reasons: RECALL LETTER- EGD-COLONOSCOPY Chief Complaint: EGD/ c-scope Surgical Assistant Required: No Is patient in pain?: No Allergies No Known Allergies Allergy (Verified 05/28/24 14:02) Medications ?Medication ?Instructions ?Recorded ?Confirmed ?Type simvastatin 20 mg tablet 20 mg PO QAM 11/17/17 05/28/24 History aspirin 81 mg tablet,delayed 81 mg PO DAILY 12/08/18 05/28/24 History release (Adult Aspirin Regimen) Have you fallen in the past year?: No PFSH Medical History Multiple polyps of sigmoid colon Pre-operative cardiovascular exam, new EKG abnormalities c/w ischemia Abnormal EKG Peña esophagus Heartburn Hypercholesteremia Surgical History History of repair of hiatal hernia History of esophagogastroduodenoscopy (EGD) H/O colonoscopy H/O umbilical hernia repair S/P right rotator cuff repair S/P right knee arthroscopy Family History Father Colon cancerMother CAD (coronary artery disease) Social History Smoking Status: Never smoker alcohol intake: never HPI HPI HPI: Patient is a 64-year-old male here for Peña's esophagus as well as history of cancer in his father of colon. The patient had Paradise fundoplication and had Peña's esophagus 3 years ago and this was biopsied. He is due for surveillance. The patient also had family history of colon cancer and requires colonoscopy for evaluation. He denies abdominal pain or blood in the stool. ROS General General: No weight change, appetite, fatigue, colon cancer, breast cancer or weakness HEENT HEENT: No difficulty swallowing, eye injury, eye surgery, swollen glands or hoarseness Endo Endocrine: No thyroid disease, diabetes mellitus, thyroid cancer, Hair loss, heat intolerance or cold intolerance Skin Skin: No rash or changing moles Breast Breast: No left breast lump, right breast lump, nipple discharge, breast pain, abnormal mammogram, abnormal US or breast enlargement Musc Musculoskeletal: No back problems, arthritis, rheumatoid arthritis, gout or joint pain Cardio Cardiovascular: No murmur, pacemaker, heart disease, atrial fibrillation, high blood pressure, heart attack, heart stent, palpitations, shortness of breat with exertion or chest pain Psych Psychiatric: No depression, anxiety or hearing voices Resp Respiratory: No shortness of breath, No sleep apnea, No cough, No COPD, No asthma, No emphysema and No wheezing Gastro Gastrointestinal: No abdominal pain, No nausea or vomiting, No diarrhea, No constipation, No blood in stool, No acid reflux, No hemorrhoids, No ulcers, No gallbladder problem and No black,tarry stools Donaldo Hematologic: Yes blood thinners, No blood disorders, No bleeding, No anemia and Yes blood clots Neuro Neurologic: No system reviewed and no additional complaints, except as documented, No as per HPI, No abnormal gait, No abnormal hearing, No abnormal movements, No abnormal speech, No behavioral changes, No burning sensations, No confusion, No convulsions, No disequilibrium, No dizziness, No localized weakness, No frequent falls, No headache(s), No lack of coordination, No loss of vision, No memory loss, No numbness, No other visual disturbances, No radicular pain, No restless legs, No sensory deficit, No syncope, No tingling, No tremor(s), No weakness and No other Exam Const General: cooperative Orientation: alert and oriented x3 HENMT Head: normal to inspection Neck Neck: normal visual inspection and full ROM Chest Chest palpation & inspection: normal inspection of the chest Resp Effort & Inspection: normal respiratory effort Auscultation: clear to auscultation bilaterally Cardio Rate: regular rate Rhythm: regular rhythm GI Inspection: non-distended Palpation: soft and nontender Skin General: no rashes or lesions noted Neuro General: patient alert and patient oriented x3 Extrem General: full ROM Psych Appearance: grossly normal Mental Status: mental status grossly normal Assessment and Plan Assessment and Plan (1) Multiple polyps of sigmoid colon: Status: Acute (2) Peña esophagus: Status: Acute Orders: Orders EGD Today Colonoscopy Today Plan Patient is due for surveillance colonoscopy. He is also due for surveillance EGD for Peña's esophagus. I explained endoscopy in detail to the patient. I explained the risks including but not limited to stroke or heart attack with anesthesia, perforation of the GI tract, bleeding, infection. I explained that any of these could necessitate further emergency surgery. The patient understands and all questions were answered sufficiently. The patient wishes to proceed with procedure. Jef Cassidy MD Pager: [facility] [address] [place] [address] [address] [place] [address] Office: I have examined the patient and the H&P has been reviewed. There are no clinical changes since date of exam.
--- NOTE | 2024-07-08 10:00 | COLBX_PTH ---
PATIENT: ABY LESTER LOC: EN U#:[id number] AGE/SX: 64/M ROOM: RE07/08/[address]: Dr. Jef Cassidy MD : 1960 BED: DIS: 07/08/2024 SPEC #: [id number] RECD: 07/08/24 11:18 STATUS: ADEOLA PINTO #: [id number] REYMUNDO: 07/08/24 10:[address]: Jef Cassidy DEPT: SURGICAL PATHOLOGY RECD BY: Raina Alcazar ENTERED: 07/08/24 11:49 SP TYPE: COLON BX OTHR DR: Dr. Basilia Padilla MD Tissues: Gastric mucous membrane Procedures: Special Stain Group I Surgery Specimen Level IV Alcian Blue/PAS (control) HEADER OPERATION: Colonoscopy, EGD with biopsy PRE-OP DIAGNOSIS: Multiple polyps of sigmoid colon, Peña's esophagus TISSUE SUBMITTED: Gastroesophageal junction biopsy MICROSCOPIC DIAGNOSIS Gastroesophageal junction, biopsy: Fragments of gastroesophageal mucosa with extensive intestinal metaplasia (goblet cell metaplasia), consistent with Peña's esophagus. Chronic inflammation. Negative for dysplasia. See comment. 07/09/2024 COMMENT Alcian blue/PAS stain with matched control is used in the evaluation of the specimen. Immunohistochemistry ([id number]) for P53 and Ki-67 will be performed and results will be reported separately. MICROSCOPIC DESCRIPTION Slides are reviewed. GROSS DESCRIPTION Received in fixative is one container labeled with the patient's name and designated GE junction biopsy. The specimen consists of multiple irregular fragments of light marcial soft tissue that in aggregate measure 0.6 x 0.4 x 0.1 cm. The specimen is totally submitted in one cassette. 07/08/2024 TC:3 CPT:17504,31409
--- NOTE | 2024-07-08 10:10 | OP.CCLET_ITS ---
07/08/2024 Basilia Padilla [address] [place] [address] Re : Upper GI endoscopy procedure for [facility] Dear Dr. Padilla This procedure was performed on June. My impressions and recommendations are as follows: Impressions : - Esophageal mucosal changes secondary to established short-segment Peña's disease. Biopsied. Recommendations : - Discharge patient to home. - Resume previous diet. - Continue present medications. - Await pathology results. - Repeat upper endoscopy in 3 years for surveillance of Peña's esophagus. My findings are described in the full procedure note, which is enclosed. If I can be of further assistance, please feel free to contact me at Doctor phone number(s): , Work: . Sincerely, Jef Cassidy MD 07/08/2024 10:10:20 AM This report has been signed electronically.
--- NOTE | 2024-07-08 10:10 | OP.EGD_ITS ---
Patient Name: Hood Lyles Procedure Date: 07/08/2024 9:38 AM Date of : 1960 Age: 64 Procedure: Upper GI endoscopy Indications: Follow-up of Peña's esophagus Providers: Jef Cassidy MD Referring MD: Basilia Padilla Medicines: Propofol per Anesthesia Patient Profile: This is a 64 year old male. Refer to note in patient chart for documentation of history and physical. Complications: No immediate complications. Estimated blood loss: Minimal. Procedure: Pre-Anesthesia Assessment: - Prior to the procedure, a History and Physical was performed, and patient medications and allergies were reviewed. The patient's tolerance of previous anesthesia was also reviewed. The risks and benefits of the procedure and the sedation options and risks were discussed with the patient. All questions were answered, and informed consent was obtained. Prior Anticoagulants: The patient has taken no anticoagulant or antiplatelet agents. After reviewing the risks and benefits, the patient was deemed in satisfactory condition to undergo the procedure. After obtaining informed consent, the endoscope was passed under direct vision. Throughout the procedure, the patient's blood pressure, pulse, and oxygen saturations were monitored continuously. The Colonoscope was introduced through the mouth, and advanced to the third part of duodenum. The upper GI endoscopy was accomplished without difficulty. The patient tolerated the procedure well. Scope In: 9:49:02 AM Scope Out: 9:53:50 AM Total Procedure Duration Time 0 hours 4 minutes 48 seconds Findings: There were esophageal mucosal changes secondary to established short-segment Peña's disease present in the distal esophagus. Mucosa was biopsied with a cold forceps for histology in a targeted manner at the gastroesophageal junction. One specimen bottle was sent to pathology. Paradise Wrap is in good position. Impression: - Esophageal mucosal changes secondary to established short-segment Peña's disease. Biopsied. Recommendation: - Discharge patient to home. - Resume previous diet. - Continue present medications. - Await pathology results. - Repeat upper endoscopy in 3 years for surveillance of Peña's esophagus. Procedure Code(s): --- Professional --- 77624, Esophagogastroduodenoscopy, flexible, transoral; with biopsy, single or multiple Diagnosis Code(s): --- Professional --- K22.70, Peña's esophagus without dysplasia CPT copyright 2021 [employer]. All rights reserved. The codes documented in this report are preliminary and upon kier boiler review may be revised to meet current compliance requirements. Jef Cassidy MD 07/08/2024 10:10:20 AM This report has been signed electronically. Number of Addenda: 0 Note Initiated On: 07/08/2024 9:38 AM
--- NOTE | 2024-07-08 10:12 | OP.COLON_ITS ---
Patient Name: Hood Lyles Procedure Date: 07/08/2024 9:54 AM Date of : 1960 Age: 64 Procedure: Colonoscopy Indications: Screening for colorectal malignant neoplasm Providers: Jef Cassidy MD Referring MD: Basilia Padilla Medicines: Propofol per Anesthesia Patient Profile: This is a 64 year old male. Refer to note in patient chart for documentation of history and physical. Last Colonoscopy: none. The patient's first colonoscopy is today. Complications: No immediate complications. Procedure: Pre-Anesthesia Assessment: - Prior to the procedure, a History and Physical was performed, and patient medications and allergies were reviewed. The patient's tolerance of previous anesthesia was also reviewed. The risks and benefits of the procedure and the sedation options and risks were discussed with the patient. All questions were answered, and informed consent was obtained. Prior Anticoagulants: The patient has taken no anticoagulant or antiplatelet agents. After reviewing the risks and benefits, the patient was deemed in satisfactory condition to undergo the procedure. - Prior to the procedure, a History and Physical was performed, and patient medications and allergies were reviewed. The patient's tolerance of previous anesthesia was also reviewed. The risks and benefits of the procedure and the sedation options and risks were discussed with the patient. All questions were answered, and informed consent was obtained. Prior Anticoagulants: The patient has taken no anticoagulant or antiplatelet agents. After reviewing the risks and benefits, the patient was deemed in satisfactory condition to undergo the procedure. After I obtained informed consent, the scope was passed under direct vision. Throughout the procedure, the patient's blood pressure, pulse, and oxygen saturations were monitored continuously. The Colonoscope was introduced through the anus and advanced to the cecum, identified by appendiceal orifice and ileocecal valve. The colonoscopy was performed without difficulty. The patient tolerated the procedure well. The quality of the bowel preparation was good. Anatomical landmarks were photographed. Scope In: 9:55:20 AM Scope Withdrawal Time 0 hours 6 minutes 20 seconds Scope Out: 10:05:08 AM Total Procedure Duration Time 0 hours 9 minutes 48 seconds Findings: The entire examined colon appeared normal on direct and retroflexion views. Impression: - The entire examined colon is normal on direct and retroflexion views. - No specimens collected. Recommendation: - Discharge patient to home. - Resume previous diet. - Continue present medications. - Repeat colonoscopy in 10 years for screening purposes. Procedure Code(s): --- Professional --- 73855, Colonoscopy, flexible; diagnostic, including collection of specimen(s) by brushing or washing, when performed (separate procedure) Diagnosis Code(s): --- Professional --- Z12.11, Encounter for screening for malignant neoplasm of colon CPT copyright 2021 [employer]. All rights reserved. The codes documented in this report are preliminary and upon large animal veterinarian review may be revised to meet current compliance requirements. Jef Cassidy MD 07/08/2024 10:11:45 AM This report has been signed electronically. Number of Addenda: 0 Note Initiated On: 07/08/2024 9:54 AM
--- NOTE | 2024-07-08 10:12 | OP.CCLET_ITS ---
07/08/2024 Basilia Padilla [address] [place] [address] Re : Colonoscopy procedure for [facility] Dear Dr. Padilla This procedure was performed on June. My impressions and recommendations are as follows: Impressions : - The entire examined colon is normal on direct and retroflexion views. - No specimens collected. Recommendations : - Discharge patient to home. - Resume previous diet. - Continue present medications. - Repeat colonoscopy in 10 years for screening purposes. My findings are described in the full procedure note, which is enclosed. If I can be of further assistance, please feel free to contact me at Doctor phone number(s): , Work: . Sincerely, Jef Cassidy MD 07/08/2024 10:11:45 AM This report has been signed electronically.
--- NOTE | 2024-07-08 10:14 | PCM.POST.ANE ---
Anesthesia: Postop Eval I Current Vital Signs Temperature: 97.9 F Pulse Rate: 72 Blood Pressure: 94/66 Respiratory Rate: 16 Pulse Ox: 96 Oxygen Delivery Method: Room Air Assessment Airway patent: Yes Spontaneous unlabored respirations: Yes Mental status: Asleep nausea: No Vomiting: No Anesthesia Complication: No Fluid Hydration Crystalloid volume administer (ml): 60 Total IV fluid infused: 60 Progress Note Anesthesia document: Postop Eval 1 completed: Yes
--- NOTE | 2024-07-08 16:46 | PCM.POSTANE2 ---
Anesthesia Postop Eval I Sum Postop Eval Completion status Anesthesia document: Postop Eval 1 completed: Yes Anesthesia Postop Eval I Summary Anesthesia Postop Eval I Summary: Anesthesia Postop Eval I: Assessment Summary Airway patent Yes 07/08/24 10:15 [email or web address] Spontaneous unlabored Yes 07/08/24 10:15 [email or web address] respirations Mental status Asleep 07/08/24 10:15 [email or web address] nausea No 07/08/24 10:15 [email or web address] Vomiting No 07/08/24 10:15 [email or web address] Anesthesia Postop Eval I: Fluid Summary Crystalloid volume administer 60 07/08/24 10:15 [email or web address] (ml) Colloids volume administered ( ml) Blood Product volume administered (ml) Total IV fluid infused 60 07/08/24 10:15 [email or web address] Anesthesia Postop Eval I: Summary Notes Anesthesia Complication No 07/08/24 10:15 [email or web address] Anesthesia Complication Comment: Post-operative progress note Anesthesia: Postop Eval II Evaluation Mental status: Awake Pain Level: 0 nausea: No Vomiting: No
== END 2024-07-08 11:00 | disposition home or self-care (01) ==
LOC: EN 08:09 → AC 08:09
PROVIDERS: PCP Internal Medicine Infectious Disease; Referring Provider Internal Medicine Infectious Disease; Visit Provider Surgery
PROC: 0DJD8ZZ Inspection of Lower Intestinal Tract, Via Natural or Artificial Opening Endoscopic (ICD-10-PCS; CPT 45378; principal; 2024-07-08 09:55)
DX: Z12.11 Encounter for screening for malignant neoplasm of colon (principal); K22.70 Barrett's esophagus without dysplasia; E78.00 Pure hypercholesterolemia, unspecified; Z80.0 Family history of malignant neoplasm of digestive organs; Z79.82 Long term (current) use of aspirin; Z87.19 Personal history of other diseases of the digestive system; Z87.891 Personal history of nicotine dependence; Z86.718 Personal history of other venous thrombosis and embolism; Z96.659 Presence of unspecified artificial knee joint; Z79.899 Other long term (current) drug therapy; Z86.0100 Personal history of colon polyps, unspecified
CPT/HCPCS: 45378; 43239; 88305; 88312; 88341; 88342; A4216; J2405